=== PATIENT | male | born 1965 | race Caucasian/White ===

== ENCOUNTER → 2017-03-31 | Outpatient (REF) ==
[~2017-03-31] MED LIST: KLONOPIN 0.5MG0.5 MG PO; MAXALT MLT5 MG PO; OMNICEF 300MG300 MG PO
== END ==
LOC: WSOH 09:25
DX: Z00.00 Encounter for general adult medical examination without abnormal findings (principal)

== ENCOUNTER 2018-12-01 20:50 | Emergency (ER) | payer BC ==
[~2018-12-01] VITALS: Ht 193 cm; Wt 109.1 kg
[2018-12-01 20:53] VITALS: TEMP 96.9
[2018-12-01] MEDS ORDERED: BYSTOLIC5 MG PO (20:56)
[2018-12-01 21:13] LABS: BASO % 0.2 % (0.0-2.0); EOS # 0.2 (0.0-0.7); EOS % 1.1 % (0-4.0); GRAN # 8.5 (1.4-6.5); HEMATOCRIT 49.2 % (42.0-52.0); HEMOGLOBIN 16.2 g/dl (13.5-18.0); LYMPH # 4.9 (1.2-3.4); LYMPH % 32.5 % (20.0-51.0); MEAN CELL VOLUME 94 fl (80.0-100.0); MEAN CORPUSCULAR HEMOGLOBIN 31 pg (27.0-31.0); MEAN CORPUSCULAR HGB CONC 33 g/dl (33.0-37.0); MEAN PLATELET VOLUME 9.8 fl (7.4-10.4); MONO # 1.5 (0.1-0.6); MONO % 9.7 % (1.7-9.3); PLATELET COUNT 207 K/mm3 (130-400); RED BLOOD COUNT 5.21 M/mm3 (4.20-5.60); REDCELL DISTRIBUTION WIDTH-CV 13.1 % (11.5-14.5)
[2018-12-01 21:18] LABS: INR 0.9 (0.8-3.0); PROTHROMBIN TIME 10.7 SECONDS (9.7-12.8)
[2018-12-01 21:23] LABS: ALBUMIN 4.4 gm/dL (3.5-5.0); BILIRUBIN,TOTAL 1.5 mg/dL (0.0-1.0); CALCIUM 9.7 mg/dL (8.4-10.2); CREATININE, serum 1.13 (0.66-1.25); POTASSIUM 4.3 mmol/L (3.4-5.0); TOTAL PROTEIN 7.4 gm/dL (6.4-8.2)
[2018-12-01 21:34] LABS: TROPONIN-I 0.015 ng/mL (0.000-0.035)
[2018-12-01 21:43] VITALS: BP 112/86; PULSE 75
== END 2018-12-01 22:25 | disposition other institution (70) ==
LOC: COL.ER 20:50
PROVIDERS: Emergency Medicine
DX: I46.9 Cardiac arrest, cause unspecified (principal); I21.3 ST elevation (STEMI) myocardial infarction of unspecified site; I10 Essential (primary) hypertension; F17.210 Nicotine dependence, cigarettes, uncomplicated
CPT/HCPCS: J0282; J1644; J3101; J7060

== ENCOUNTER 2019-01-30 14:41 | Outpatient (RCR) | payer BC ==
[~2019-01-30 14:41] MED LIST changes: +BYSTOLIC5 MG PO
[2019-03-07] MEDS ORDERED: LIPITOR 80MG80 MG PO (19:16)
[2019-03-07] MEDS ORDERED: COZAAR 25MG25 MG/TAB PO (19:17)
[2019-03-07] MEDS ORDERED: ASPIRIN 81M81 MG/TA2 PO (19:17)
[2019-03-07] MEDS ORDERED: EFFIENT10 MG PO (19:18)
[2019-03-07] MEDS ORDERED: ANTIVERT 25MG25 MG PO (21:21)
== END 2019-03-19 | disposition home or self-care (01) ==
LOC: COL.CR
DX: Z48.812 Encounter for surgical aftercare following surgery on the circulatory system (principal); I21.09 ST elevation (STEMI) myocardial infarction involving other coronary artery of anterior wall; Z95.5 Presence of coronary angioplasty implant and graft

== ENCOUNTER 2019-03-07 18:44 | Emergency (ER) | payer BC ==
[~2019-03-07] VITALS: Ht 193 cm; Wt 107.7 kg
[2019-03-07 18:48] VITALS: TEMP 99.5
[2019-03-07 19:08] LABS: INR 0.9 (0.8-3.0); PROTHROMBIN TIME 10.8 SECONDS (9.7-12.8)
[2019-03-07 19:11] LABS: PARTIAL THROMBOPLASTIN TIME 31.4 SECONDS (26.0-37.0)
[2019-03-07 19:12] LABS: BASO % 0.3 % (0.0-2.0); EOS # 0.3 (0.0-0.7); EOS % 2.8 % (0-4.0); GRAN # 5.6 (1.4-6.5); GRAN % 60.5 % (42.2-75.2); HEMATOCRIT 44.3 % (42.0-52.0); HEMOGLOBIN 14.8 g/dl (13.5-18.0); LYMPH # 2.5 (1.2-3.4); LYMPH % 26.7 % (20.0-51.0); MEAN CELL VOLUME 94 fl (80.0-100.0); MEAN CORPUSCULAR HEMOGLOBIN 31 pg (27.0-31.0); MEAN CORPUSCULAR HGB CONC 33 g/dl (33.0-37.0); MEAN PLATELET VOLUME 10.2 fl (7.4-10.4); MONO # 0.9 (0.1-0.6); MONO % 9.3 % (1.7-9.3); PLATELET COUNT 162 K/mm3 (130-400); RED BLOOD COUNT 4.74 M/mm3 (4.20-5.60); REDCELL DISTRIBUTION WIDTH-CV 12.2 % (11.5-14.5)
[2019-03-07 19:14] LABS: ALANINE AMINOTRANSFERASE 29 U/L (21-72); ALBUMIN 4.7 gm/dL (3.5-5.0); ALKALINE PHOSPHATASE 59 U/L (50-136); ANION GAP 11 mmol/L (7-16); AST,SGOT 36 U/L (15-37); BLOOD UREA NITROGEN 15 mg/dL (9-20); CALCIUM 9.5 mg/dL (8.4-10.2); CARBON DIOXIDE 25 mmol/L (22-30); CHLORIDE 104 mmol/L (98-107); CREATININE, serum 0.88 (0.66-1.25); GLUCOSE 126 mg/dL (74-106); LIPASE 101 U/L (23-300); POTASSIUM 3.8 mmol/L (3.4-5.0); SODIUM 140 mmol/L (137-145); TOTAL PROTEIN 7.5 gm/dL (6.4-8.2)
[2019-03-07 19:15] LABS: C-REACTIVE PROTEIN < 0.5 mg/dL (0.0-0.9)
[2019-03-07] MEDS ORDERED: LIPITOR 80MG80 MG PO (19:16)
[2019-03-07] MEDS ORDERED: COZAAR 25MG25 MG/TAB PO (19:17)
[2019-03-07] MEDS ORDERED: ASPIRIN 81M81 MG/TA2 PO (19:17)
[2019-03-07] MEDS ORDERED: EFFIENT10 MG PO (19:18)
[2019-03-07 19:24] LABS: TROPONIN-I 0.014 ng/mL (0.000-0.035)
[2019-03-07] MEDS ORDERED: ANTIVERT 25MG25 MG PO (21:21)
[2019-03-07 22:10] VITALS: BP 133/79; PULSE 68
== END 2019-03-07 22:21 | disposition home or self-care (01) ==
LOC: COL.ER 18:44
PROVIDERS: Emergency Medicine
DX: R42 Dizziness and giddiness (principal); I25.10 Atherosclerotic heart disease of native coronary artery without angina pectoris; E78.00 Pure hypercholesterolemia, unspecified; I10 Essential (primary) hypertension; Z95.5 Presence of coronary angioplasty implant and graft; Z87.891 Personal history of nicotine dependence; Z79.82 Long term (current) use of aspirin

== ENCOUNTER 2019-05-04 08:27 | Day surgery (SDC) | payer BC ==
[2019-05-04] VITALS (14 sets, daily range): BP systolic 106–138; BP diastolic 70–93; PULSE 10–84; TEMP 98.6
[~2019-05-04] VITALS: Ht 193 cm; Wt 104.7 kg
[~2019-05-04 08:27] MED LIST changes: +ANTIVERT 25MG25 MG PO; +ASPIRIN 81M81 MG/TA2 PO; +COZAAR 25MG25 MG/TAB PO; +EFFIENT10 MG PO; +LIPITOR 80MG80 MG PO
[2019-05-04] MEDS ORDERED: NITROSTAT0.4 MG/TAB SL (09:14)
[2019-05-04] MEDS ORDERED: MAXALT10 MG (09:14)
[2019-05-04 09:22] LABS: HEMATOCRIT 48.1 % (42.0-52.0); HEMOGLOBIN 15.7 g/dl (13.5-18.0); MEAN CELL VOLUME 96 fl (80.0-100.0); MEAN CORPUSCULAR HEMOGLOBIN 31 pg (27.0-31.0); MEAN CORPUSCULAR HGB CONC 33 g/dl (33.0-37.0); MEAN PLATELET VOLUME 9.8 fl (7.4-10.4); PLATELET COUNT 194 K/mm3 (130-400); RED BLOOD COUNT 5.03 M/mm3 (4.20-5.60)
[2019-05-04 09:31] LABS: INR 0.9 (0.8-3.0); PROTHROMBIN TIME 10.7 SECONDS (9.7-12.8)
[2019-05-04 09:33] LABS: CALCIUM 9.5 mg/dL (8.4-10.2); CREATININE, serum 0.84 (0.66-1.25); POTASSIUM 4.5 mmol/L (3.4-5.0)
== END 2019-05-04 19:00 | disposition home or self-care (01) ==
LOC: COL.CAR 08:27
PROVIDERS: Internal Medicine Cardiovascular Disease
DX: I25.10 Atherosclerotic heart disease of native coronary artery without angina pectoris (principal); I25.2 Old myocardial infarction; I42.9 Cardiomyopathy, unspecified; F41.9 Anxiety disorder, unspecified; I10 Essential (primary) hypertension; I49.01 Ventricular fibrillation; E78.5 Hyperlipidemia, unspecified; Z79.02 Long term (current) use of antithrombotics/antiplatelets; Z79.82 Long term (current) use of aspirin; Z87.891 Personal history of nicotine dependence; Z83.3 Family history of diabetes mellitus; Z82.49 Family history of ischemic heart disease and other diseases of the circulatory system; Z95.0 Presence of cardiac pacemaker
CPT/HCPCS: C1769; J1644; J2250; J3010; Q9967

== ENCOUNTER 2019-07-10 06:58 | Outpatient (CLI) | payer BC ==
[~2019-07-10] VITALS: Ht 193 cm; Wt 106.3 kg
[~2019-07-10 06:58] MED LIST changes: +MAXALT10 MG; +NITROSTAT0.4 MG/TAB SL
[2019-07-10 07:45] VITALS: BP 133/86; PULSE 73; TEMP 98.1
[2019-07-10] MEDS ORDERED: CARDIZEM CD 12120 MG PO (07:57)
[2019-07-10 09:00] VITALS: BP 123/73; PULSE 72
[2019-07-10] MEDS ORDERED: CEPHALEXIN500 M1 PO (09:04)
--- NOTE | 2019-07-10 09:14 | NUR ---
Clarified with Dr Argentina Swenson nurse if abx script to be sent with pt.Per Leela, Will be sent to pt pharmacy.Discharge instructions given to pt.Pt verbalizes understanding.Pt escorted out by this nurse.
== END 2019-07-10 09:17 | disposition home or self-care (01) ==
LOC: COL.CAR 06:58
DX: I25.10 Atherosclerotic heart disease of native coronary artery without angina pectoris (principal); I25.2 Old myocardial infarction; I10 Essential (primary) hypertension; I38 Endocarditis, valve unspecified; F41.9 Anxiety disorder, unspecified; E78.5 Hyperlipidemia, unspecified; I25.5 Ischemic cardiomyopathy; I49.01 Ventricular fibrillation; I47.1 Supraventricular tachycardia; Z79.02 Long term (current) use of antithrombotics/antiplatelets; Z79.82 Long term (current) use of aspirin; Z87.891 Personal history of nicotine dependence; Z95.5 Presence of coronary angioplasty implant and graft; Z83.3 Family history of diabetes mellitus; Z82.49 Family history of ischemic heart disease and other diseases of the circulatory system

== ENCOUNTER → 2019-08-07 | Outpatient (CLI) | payer BC ==
[~2019-08-07] MED LIST changes: +CARDIZEM CD 12120 MG PO; +CEPHALEXIN500 M1 PO
== END ==
LOC: COL.VAS 12:01
DX: I25.10 Atherosclerotic heart disease of native coronary artery without angina pectoris (principal)

== ENCOUNTER 2019-12-05 18:24 | Emergency (ER) | payer BC ==
[~2019-12-05] VITALS: Ht 193 cm; Wt 94.5 kg
[2019-12-05 19:01] LABS: BASO % 0.1 % (0.0-2.0); EOS # 0.1 (0.0-0.7); EOS % 0.7 % (0-4.0); GRAN # 5.1 (1.4-6.5); GRAN % 67.5 % (42.2-75.2); HEMATOCRIT 43.8 % (42.0-52.0); HEMOGLOBIN 14.3 g/dl (13.5-18.0); LYMPH # 1.6 (1.2-3.4); LYMPH % 21.6 % (20.0-51.0); MEAN CELL VOLUME 95 fl (80.0-100.0); MEAN CORPUSCULAR HEMOGLOBIN 31 pg (27.0-31.0); MEAN CORPUSCULAR HGB CONC 33 g/dl (33.0-37.0); MEAN PLATELET VOLUME 9.5 fl (7.4-10.4); MONO # 0.7 (0.1-0.6); MONO % 9.7 % (1.7-9.3); PLATELET COUNT 154 K/mm3 (130-400); RED BLOOD COUNT 4.61 M/mm3 (4.20-5.60); REDCELL DISTRIBUTION WIDTH-CV 12.8 % (11.5-14.5)
[2019-12-05 19:10] LABS: ALANINE AMINOTRANSFERASE 21 U/L (4-49); ALBUMIN 4.2 gm/dL (3.5-5.0); ALKALINE PHOSPHATASE 52 U/L (50-136); ANION GAP 6 mmol/L (7-16); AST,SGOT 27 U/L (15-37); BILIRUBIN,TOTAL 2.1 mg/dL (0.0-1.0); BLOOD UREA NITROGEN 21 mg/dL (9-20); CALCIUM 8.9 mg/dL (8.4-10.2); CARBON DIOXIDE 26 mmol/L (22-30); CHLORIDE 102 mmol/L (98-107); CREATININE, serum 0.74 (0.66-1.25); GLUCOSE 107 mg/dL (74-106); POTASSIUM 3.9 mmol/L (3.4-5.0); SODIUM 134 mmol/L (137-145)
[2019-12-05 19:23] LABS: TROPONIN-I < 0.012 ng/mL (0.000-0.035)
[2019-12-05] MEDS ORDERED: ANTIVERT 25MG25 MG PO (20:07)
[2019-12-05] MEDS ORDERED: PROMETHAZINE12.5 M5 PO (20:07)
[2019-12-05 20:30] VITALS: BP 119/68; PULSE 63; TEMP 98
== END 2019-12-05 20:35 | disposition home or self-care (01) ==
LOC: COL.ER 18:24
PROVIDERS: Emergency Medicine
DX: R42 Dizziness and giddiness (principal); I10 Essential (primary) hypertension; I25.10 Atherosclerotic heart disease of native coronary artery without angina pectoris; Z95.5 Presence of coronary angioplasty implant and graft; Z79.82 Long term (current) use of aspirin
CPT/HCPCS: J2550; J7030

== ENCOUNTER 2020-07-31 11:28 | Day surgery (SDC) | payer BC ==
[~2020-07-31] VITALS: Ht 193 cm; Wt 103.9 kg
[2020-07-31] VITALS (114 sets, daily range): BP systolic 119–140; BP diastolic 75–88; PULSE 62–73; TEMP 97.8–98.6; O2SAT 84–100
[~2020-07-31 11:28] MED LIST changes: -CARDIZEM CD 12120 MG PO; +CARTIA XT180 MG PO; -MAXALT10 MG; +MAXALT10 MG PO; +NITRO-DUR0.2 MG/PAT TD; +PROMETHAZINE12.5 M5 PO
[2020-07-31 12:30] LABS: PROTHROMBIN TIME 11.3 SECONDS (9.7-12.8)
[2020-07-31 12:32] LABS: PARTIAL THROMBOPLASTIN TIME 31.4 SECONDS (26.0-37.0)
[2020-07-31 12:36] LABS: CALCIUM 8.8 mg/dL (8.4-10.2); CREATININE, serum 0.8 (0.66-1.25); POTASSIUM 4.1 mmol/L (3.4-5.0)
[2020-07-31 12:42] LABS: HEMATOCRIT 44.8 % (42.0-52.0); HEMOGLOBIN 14.9 g/dl (13.5-18.0); MEAN CELL VOLUME 95 fl (80.0-100.0); MEAN CORPUSCULAR HEMOGLOBIN 32 pg (27.0-31.0); MEAN CORPUSCULAR HGB CONC 33 g/dl (33.0-37.0); MEAN PLATELET VOLUME 9.8 fl (7.4-10.4); PLATELET COUNT 154 K/mm3 (130-400); RED BLOOD COUNT 4.72 M/mm3 (4.20-5.60); REDCELL DISTRIBUTION WIDTH-CV 12.7 % (11.5-14.5)
[2020-07-31] MEDS ORDERED: NITRO-DUR0.2 MG/PAT TD (13:38)
--- NOTE | 2020-07-31 15:15 | NUR ---
PT to ICU from cathlab. PT alert and oriented. Pleasent. No c/o. No pain. Right radial site looks good with no bleeding noted. PT resting in bed watching tv with call light in hand.
[2020-08-01] VITALS (160 sets, daily range): BP systolic 105–119; BP diastolic 65–82; PULSE 58–70; TEMP 98–98.4; O2SAT 96–100
[2020-08-01 04:41] LABS: BASO % 0.3 % (0.0-2.0); EOS # 0.2 (0.0-0.7); EOS % 3.2 % (0-4.0); GRAN # 3.8 (1.4-6.5); GRAN % 58.4 % (42.2-75.2); HEMATOCRIT 43.7 % (42.0-52.0); HEMOGLOBIN 14.1 g/dl (13.5-18.0); LYMPH # 1.7 (1.2-3.4); LYMPH % 25.8 % (20.0-51.0); MEAN CELL VOLUME 95 fl (80.0-100.0); MEAN CORPUSCULAR HEMOGLOBIN 31 pg (27.0-31.0); MEAN CORPUSCULAR HGB CONC 32 g/dl (33.0-37.0); MEAN PLATELET VOLUME 9.4 fl (7.4-10.4); MONO # 0.8 (0.1-0.6); PLATELET COUNT 142 K/mm3 (130-400); RED BLOOD COUNT 4.61 M/mm3 (4.20-5.60); REDCELL DISTRIBUTION WIDTH-CV 12.8 % (11.5-14.5)
[2020-08-01 04:52] LABS: CALCIUM 8.3 mg/dL (8.4-10.2); CREATININE, serum 0.82 (0.66-1.25); POTASSIUM 4.1 mmol/L (3.4-5.0)
--- NOTE | 2020-08-01 11:04 | NUR ---
Certification Engineer met with patient to discuss discharge planning. Patient lives in [place] with his , Liana (ph#[phone]) and sees Dr. Burton for primary care. Patient obtains medications from [facility] with no difficulties. Patient is employed at [employer]. Patient uses a CPAP and no other DME. Patient is independent with ADLS and plans to return home upon discharge. Patient does not have Advance Directives and is not interested in designating DPOA-HC at this time. 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 No needs identified at this time.
--- NOTE | 2020-08-01 12:03 | NUR ---
First visit from the long wall mining machine helper. No needs right now.
--- NOTE | 2020-08-01 13:38 | NUR ---
Discharge instructions and education reviewed with patient. Denies questions at this time. Right radial cath site without bleeding or bruising, open to air. 1345-Ambulatory to POV with driving.
== END 2020-08-01 13:45 | disposition home or self-care (01) ==
LOC: COL.CAR 11:28 → ICU 15:36 → COL.CAR 08-01 13:45
PROVIDERS: Internal Medicine Cardiovascular Disease
DX: I25.110 Atherosclerotic heart disease of native coronary artery with unstable angina pectoris (principal); I25.5 Ischemic cardiomyopathy; E78.5 Hyperlipidemia, unspecified; G47.33 Obstructive sleep apnea (adult) (pediatric); Z87.891 Personal history of nicotine dependence; I10 Essential (primary) hypertension; F41.9 Anxiety disorder, unspecified; I25.2 Old myocardial infarction; Z79.82 Long term (current) use of aspirin; I47.1 Supraventricular tachycardia
CPT/HCPCS: OP; C1725; C1769; C1887; J0583; J1644; J2250; J3010

== ENCOUNTER 2020-09-30 14:01 | Outpatient (RCR) | payer BC | END 2020-10-02 14:42 | disposition home or self-care (01) | LOC: COL.CR 14:01 | DX: Z48.812 Encounter for surgical aftercare following surgery on the circulatory system (principal); Z98.61 Coronary angioplasty status ==

== ENCOUNTER 2022-02-26 06:55 | Day surgery (SDC) | payer BC ==
[~2022-02-26] VITALS: Ht 193.1 cm; Wt 107.7 kg
[2022-02-26] VITALS (14 sets, daily range): BP systolic 103–143; BP diastolic 67–87; PULSE 49–62; TEMP 98.3
[~2022-02-26 06:55] MED LIST changes: +LIPITOR 10MG10 MG PO; -LIPITOR 80MG80 MG PO
[2022-02-26 07:54] LABS: HEMATOCRIT 42.9 % (42.0-52.0); HEMOGLOBIN 14.4 g/dl (13.5-18.0); MEAN CELL VOLUME 94 fl (80.0-100.0); MEAN CORPUSCULAR HEMOGLOBIN 32 pg (27-31); MEAN CORPUSCULAR HGB CONC 34 g/dl (33.0-37.0); MEAN PLATELET VOLUME 10.3 fl (7.4-10.4); PLATELET COUNT 142 K/mm3 (130-400); RED BLOOD COUNT 4.56 M/mm3 (4.20-5.60); REDCELL DISTRIBUTION WIDTH-CV 12.6 % (11.5-14.5)
--- NOTE | 2022-02-26 08:00 | NUR ---
INT started by Raisa Mckinney lab nurse.
[2022-02-26 08:11] LABS: PROTHROMBIN TIME 10.9 SECONDS (9.7-12.8)
[2022-02-26 08:14] LABS: PARTIAL THROMBOPLASTIN TIME 25.5 SECONDS (26.0-37.0)
[2022-02-26 08:43] LABS: CREATININE, serum 0.81 mg/dL (0.72-1.25); POTASSIUM 4.2 mmol/L (3.5-4.5)
--- NOTE | 2022-02-26 08:52 | NUR ---
SEE MERGE FOR ALL MEDICATION ADMINISTRATION TIMES, INTRA AND POST SEDATION ASSESSMENTS
--- NOTE | 2022-02-26 13:00 | NUR ---
All air removed from band in 2-3 ml incriments,no bleeding observed at site.
--- NOTE | 2022-02-26 13:39 | NUR ---
Discharge instructions given to pt.Pt verbalizes understanding.Pt escorted out via wheelchair by this nurse.
== END 2022-02-26 17:04 ==
LOC: COL.CAR 06:55
PROVIDERS: Internal Medicine Cardiovascular Disease
DX: I25.10 Atherosclerotic heart disease of native coronary artery without angina pectoris (principal)
CPT/HCPCS: C1769; J1644; J2250; J3010; Q9967

== ENCOUNTER 2023-05-19 19:38 | Emergency (ER) | payer BC ==
[~2023-05-19] VITALS: Ht 193 cm; Wt 111.4 kg
[~2023-05-19 19:38] MED LIST changes: +CLEOCIN HCL300 MG PO
[2023-05-19 19:51] VITALS: TEMP 98.7
[2023-05-19 20:21] LABS: COLLECTION METHOD CLEAN CATCH
[2023-05-19 20:34] LABS: BASO % 0.4 % (0.0-2.0); EOS % 0.1 % (0.0-4.0); GRAN # 3.9 K/mm3 (1.4-6.5); GRAN % 57.4 % (42.2-75.2); HEMATOCRIT 47.8 % (42.0-52.0); LYMPH # 1.5 K/mm3 (1.2-3.4); LYMPH % 21.8 % (20.0-51.0); MEAN CELL VOLUME 95 fl (80.0-100.0); MEAN CORPUSCULAR HEMOGLOBIN 32 pg (27-31); MEAN CORPUSCULAR HGB CONC 34 g/dl (33.0-37.0); MEAN PLATELET VOLUME 9.5 fl (7.4-10.4); MONO # 1.4 K/mm3 (0.1-0.6); MONO % 19.9 % (1.7-9.3); PLATELET COUNT 147 K/mm3 (130-400); RED BLOOD COUNT 5.04 M/mm3 (4.20-5.60); REDCELL DISTRIBUTION WIDTH-CV 12.2 % (11.5-14.5)
[2023-05-19 20:53] LABS: BILIRUBIN,TOTAL 1.5 mg/dL (0.2-1.2); C-REACTIVE PROTEIN 3.99 mg/dL (0.00-0.50); CALCIUM 9.2 mg/dL (8.4-10.2); CREATININE, serum 0.94 mg/dL (0.72-1.25); POTASSIUM 4.1 mmol/L (3.5-4.5); TOTAL PROTEIN 7.2 gm/dL (6.2-8.1)
[2023-05-19 20:55] LABS: SQUAMOUS EPITHELIAL 0-2 /hpf (0-10); URINE APPEARANCE Clear (CLEAR/HAZY); URINE BLOOD TRACE-INTACT (NEGATIVE); URINE COLOR Yellow (YELLOW); URINE GLUCOSE Negative (NEGATIVE); URINE KETONE TRACE (NEGATIVE); URINE NITRATE Negative (NEGATIVE); URINE PROTEIN(semi-quant) Negative (NEGATIVE); URINE UROBILINOGEN 0.2 E.U/dL (0.2-1.0)
[2023-05-19 20:56] LABS: URINE BACTERIA Occasional /hpf (NONE SEEN)
[2023-05-19] MEDS ORDERED: PAXLOVID CO-PA1 EACH PO (22:15)
[2023-05-19 22:17] VITALS: BP 155/96; PULSE 81
== END 2023-05-19 22:26 | disposition home or self-care (01) ==
LOC: COL.ER 19:38
PROVIDERS: Nurse Practitioner
DX: U07.1 COVID-19 (principal); R05.9 Cough, unspecified; R09.81 Nasal congestion; R53.83 Other fatigue; R63.0 Anorexia; R19.7 Diarrhea, unspecified; R51.9 Headache, unspecified; Z87.891 Personal history of nicotine dependence
CPT/HCPCS: J7030